=== PATIENT | female | born 1945 | race Caucasian/White ===

== ENCOUNTER → 2017-02-28 13:07 | Outpatient (CLI) | payer MEDICARE | END | disposition home or self-care (01) | LOC: D.MAMMO 10:15 | DX: Z12.31 Encounter for screening mammogram for malignant neoplasm of breast (principal) ==

== ENCOUNTER → 2018-01-05 14:23 | Outpatient (CLI) | payer MEDICARE ==
[~2018-01-05 14:23] MED LIST: ATIVAN1 MG; ATROVENT 0.03% NS; BENZONATATE200 MG PO; BROVANA15 MCG/2 M INH; CLARITIN 10 MG10 MG PO; FLORAJEN3 CAPS460 MG PO; FLUTICASONE PRO16 GM NASAL; IPRAT-ALBUT 0.5-3 ML UPD; OMNICEF300 MG PO; PREDNISONE10 MG PO; PULMICORT0.5 MG/21 UPD; SINGULAIR10 MG PO; SYMBICORT 16010.2 GM INH; VENTOLIN HFA18 GM INH; ZITHROMAX250 MG PO
[2018-01-06 09:13] LABS: IMMUNOGLOBULIN A 204 mg/dL (64-422)
[2018-01-07 22:05] LABS: IGG SUBCLASS 1 305 mg/dL (248-810); IGG SUBCLASS 2 108 mg/dL (130-555); IGG SUBCLASS 3 28 mg/dL (15-102); IGG SUBCLASS 4 84 mg/dL (2-96)
[2018-01-09 17:12] LABS: IMMUNOGLOBULIN E 26 IU/mL (0-100)
[2018-01-15 12:46] VITALS: BMI 25.1
== END | disposition home or self-care (01) ==
LOC: D.RT 14:23
PROVIDERS: Internal Medicine Pulmonary Disease
DX: J45.901 Unspecified asthma with (acute) exacerbation (principal); J42 Unspecified chronic bronchitis

== ENCOUNTER 2018-01-13 23:28 | Inpatient (IN) | payer MEDICARE ==
[~2018-01-13] VITALS: Ht 165.1 cm; Wt 68.5 kg
--- NOTE | ~2018-01-13 | MORECARE ---
CASE MANAGEMENT DISCHARGE SUMMARY PATIENT: AMINAH DORSEY UNIT: [id number] ADM DATE: 01/14/18 AGE: 72 : 41 SEX: F ROOM/BED: D.2232 AUTHOR: LESTER,DOC PHYSICIAN: REFERRING PHYSICIAN: RAE ROLLE MD DATE OF SERVICE: 01/16/18 Discharge Plan Patient Name: AMINAH DORSEY Facility: [facility]:[place] : 1945 Planned Disposition: Home Anticipated Discharge Date: Discharge Date: Expected LOS: Initial Reviewer: [email or web address] Initial Review Date: 01/16/2018 Generated: 01/16/18 3:17 pm Comments DCP- Discharge Planning Updated by [id number]: Hailee Talley on 01/16/18 1:[address] Patient Name: AMINAH DORSEY Admission Status: ER Accout number: [id number] Admission Date: 01-14-2018 : 1945 Admission Diagnosis: Attending: RAE ROLLE Current LOS: 2 Anticipated DC Date: Planned Disposition: Home Primary Insurance: [employer] CHOICE PPO MCR ADVANT Discharge Planning Comments: CM met with patient and her spouse to discuss discharge planning. States she lives with her and is independent with all ADL's and IADL's. States she has a nebulizer and her DME company is [facility]. States she does not need additional DME at this time. States she does not have any outside community resources assisting in the home. Declines need for home health services. No needs identified at this time. CM will continue to follow and assist with discharge planning/needs. Assurance Senior Manager Insurance: Hailee Talley DCPIA - Discharge Planning Initial Assessment Updated by [id number]: Hailee Talley on 01/16/18 2:12 pm * Is the patient Alert and Oriented? Yes * How many steps to enter\exit or inside your home? 2/0 * PCP Dr. Coelho * Pharmacy [facility] on [address] * Preadmission Environment Home with Family * ADLs Independent * Equipment Nebulizer * List name and contact numbers for known caregivers / representatives who currently or will assist patient after discharge: Higinio [facility] - [phone] * Verbal permission to speak to the caregivers and representatives has been obtained from the patient. Yes * Community resources currently utilized None * Please name any agencies selected above. Uses [facility] [facility] for DME * Additional services required to return to the preadmission environment? No * Can the patient safely return to the preadmission environment? Yes * Has this patient been hospitalized within the prior 30 days at any hospital? No Patient Name: AMINAH DORSEY Page [id number] at 1417 All edits/amendments must be made on the electronic document DICTATION DATE: 01/16/181415 GRADUATE RESEARCH ASSISTANT: FROYLAN 01/16/181415 RPT#: [id number] DC DATE: STATUS: ADM IN [facility] [address] [place] [address] END OF REPORT
--- NOTE | ~2018-01-13 | MORECARE ---
CASE MANAGEMENT DISCHARGE SUMMARY PATIENT: AMINAH DORSEY UNIT: [id number] ADM DATE: 01/14/18 AGE: 72 : 41 SEX: F ROOM/BED: D.2232 AUTHOR: ALEKSEY BATISTA PHYSICIAN: REFERRING PHYSICIAN: RAE ROLLE MD DATE OF SERVICE: 01/17/18 Discharge Plan Patient Name: AMINAH DORSEY Facility: [facility]:[place] : 1945 Planned Disposition: Home Anticipated Discharge Date: Discharge Date: Expected LOS: Initial Reviewer: [email or web address] Initial Review Date: 01/16/2018 Generated: 01/17/18 5:26 pm Comments DCP- Discharge Planning Updated by [email or web address]: Hailee Talley on 01/17/18 3:[address] Patient Name: AMINAH DORESY Encounter No: [id number] : 1945 Primary Insurance: [employer] CHOICE PPO MCR ADVANT Anticipated DC Date: Planned Disposition: Home External Planned Provider: : DCP follow-up note: Patient and family in agreement with discharge plan. Declines need for DME or home health services. No changes to plan. Case management will follow and assist as needed. Hailee Talley DCP- Discharge Planning Updated by [email or web address]: Hailee Talley on 01/16/18 1:[address] Patient Name: AMINAH DORSEY Admission Status: ER Accout number: [id number] Admission Date: 01-14-2018 : 1945 Admission Diagnosis: Attending: RAE ROLLE Current LOS: 2 Anticipated DC Date: Planned Disposition: Home Primary Insurance: [employer] CHOICE PPO MCR ADVANT Discharge Planning Comments: CM met with patient and her spouse to discuss discharge planning. States she lives with her and is independent with all ADL's and IADL's. States she has a nebulizer and her DME company is [employer] [facility]. States she does not need additional DME at this time. States she does not have any outside community resources assisting in the home. Declines need for home health services. No needs identified at this time. CM will continue to follow and assist with discharge planning/needs. Control Tower Operator: Hailee Talley DCPIA - Discharge Planning Initial Assessment Updated by [id number]: Hailee Talley on 01/16/18 2:12 pm * Is the patient Alert and Oriented? Yes * How many steps to enter\exit or inside your home? 2/0 * PCP Dr. Coelho * Pharmacy [facility] on [address] * Preadmission Environment Home with Family * ADLs Independent * Equipment Nebulizer * List name and contact numbers for known caregivers / representatives who currently or will assist patient after discharge: Higinio smith - [phone] * Verbal permission to speak to the caregivers and representatives has been obtained from the patient. Yes * Community resources currently utilized None * Please name any agencies selected above. Uses [employer] [facility] for DME * Additional services required to return to the preadmission environment? No * Can the patient safely return to the preadmission environment? Yes * Has this patient been hospitalized within the prior 30 days at any hospital? No Coverage Notice Reviewer: [id number] - Hailee Talley Notice Issued Date-Time: 01/17/2018 16:18 Notice Type: IM Discharge Notice Notice Delivered To: Patient Relationship to Patient: Self Program Services Planner Name: Delivery Method: HAND - Hand Delivered Mary Days: Prior Verbal Notification: Recipient Understood Notice: Yes Recipient Signature: Yes Med Rec Note Co-signed by Attending: Coverage Notice Comment: IMM explained, signed, copy given, original placed in MR Last DP export: 01/16/18 1:17 Patient Name: AMINAH DORSEY Page 19198 at 1626 All edits/amendments must be made on the electronic document DICTATION DATE: 01/17/181625 SCREW MACHINE HAND: FROYLAN 01/17/181625 RPT#: [id number] DC DATE: STATUS: ADM IN [facility] [address] [place] [address] END OF REPORT
--- NOTE | ~2018-01-13 | MORECARE ---
CASE MANAGEMENT DISCHARGE SUMMARY PATIENT: AMINAH DORSEY UNIT: [id number] ADM DATE: 01/14/18 AGE: 72 : 41 SEX: F ROOM/BED: D.2232 AUTHOR: ALEKSEY BATISTA PHYSICIAN: REFERRING PHYSICIAN: RAE ROLLE MD DATE OF SERVICE: 01/19/18 Discharge Plan Patient Name: AMINAH DORSEY Facility: [facility]:[place] : 1945 Planned Disposition: Home Anticipated Discharge Date: Discharge Date: 01/17/2018 Expected LOS: 0 Initial Reviewer: [id number] Initial Review Date: 01/16/2018 Generated: 01/19/18 6:07 pm Comments DCP- Discharge Planning Updated by [email or web address]: Hailee Talley on 01/17/18 3:[address] Patient Name: AMINAH DORSEY Encounter No: [id number] : 1945 Primary Insurance: [employer] CHOICE PPO MCR ADVANT Anticipated DC Date: Planned Disposition: Home External Planned Provider: : DCP follow-up note: Patient and family in agreement with discharge plan. Declines need for DME or home health services. No changes to plan. Case management will follow and assist as needed. Hailee Talley DCP- Discharge Planning Updated by [email or web address]: Hailee Talley on 01/16/18 1:[address] Patient Name: AMINAH DORSEY Admission Status: ER Accout number: [id number] Admission Date: 01-14-2018 : 1945 Admission Diagnosis: Attending: RAE ROLLE Current LOS: 2 Anticipated DC Date: Planned Disposition: Home Primary Insurance: [employer] CHOICE PPO MCR ADVANT Discharge Planning Comments: CM met with patient and her spouse to discuss discharge planning. States she lives with her and is independent with all ADL's and IADL's. States she has a nebulizer and her DME company is [employer]. States she does not need additional DME at this time. States she does not have any outside community resources assisting in the home. Declines need for home health services. No needs identified at this time. CM will continue to follow and assist with discharge planning/needs. Photocomposing Machine Operator: Hailee Talley DCPIA - Discharge Planning Initial Assessment Updated by [email or web address]: Hailee Talley on 01/16/18 2:12 pm * Is the patient Alert and Oriented? Yes * How many steps to enter\exit or inside your home? 2/0 * PCP Dr. Coelho * Pharmacy [facility] on [address] * Preadmission Environment Home with Family * ADLs Independent * Equipment Nebulizer * List name and contact numbers for known caregivers / representatives who currently or will assist patient after discharge: Higinio smith - [phone] * Verbal permission to speak to the caregivers and representatives has been obtained from the patient. Yes * Community resources currently utilized None * Please name any agencies selected above. Uses [facility] for DME * Additional services required to return to the preadmission environment? No * Can the patient safely return to the preadmission environment? Yes * Has this patient been hospitalized within the prior 30 days at any hospital? No Coverage Notice Reviewer: [id number] - Hailee Talley Notice Issued Date-Time: 01/17/2018 16:18 Notice Type: IM Discharge Notice Notice Delivered To: Patient Relationship to Patient: Self Heater Helper Name: Delivery Method: HAND - Hand Delivered Mary Days: Prior Verbal Notification: Recipient Understood Notice: Yes Recipient Signature: Yes Med Rec Note Co-signed by Attending: Coverage Notice Comment: IMM explained, signed, copy given, original placed in MR Last DP export: 01/17/18 3:26 Patient Name: AMINAH DORSEY Page [id number] at 1707 All edits/amendments must be made on the electronic document DICTATION DATE: 01/19/181706 CORRECTIONAL CLASSIFICATION COUNSELOR: FROYLAN 01/19/181706 RPT#: [id number] DC DATE:01/17/18 STATUS: DIS IN [facility] [address] [place] [address] END OF REPORT
[2018-01-13] MEDS ORDERED: SINGULAIR10 MG PO (23:37)
[2018-01-13] MEDS ORDERED: FLUTICASONE PRO16 GM NASAL (23:38)
[2018-01-13] MEDS ORDERED: ATIVAN1 MG (23:39)
[2018-01-13] MEDS ORDERED: VENTOLIN HFA18 GM INH (23:40)
[2018-01-14] VITALS (8 sets, daily range): BP systolic 148–165; BP diastolic 66–92; BMI 25.1
[2018-01-14 00:24] LABS: BASOPHILS 0.6 % (0-2); EOSINOPHILS 9.4 % (0-7); HEMATOCRIT 40.1 % (36.0-48.0); HEMOGLOBIN 14.1 g/dL (12-16); IMMATURE GRANULOCYTES 0.3 % (0-5); LYMPHOCYTES 12.7 % (15-50); MCH 31.1 pg (26.0-34.0); MCHC 35.2 g/dL (31.0-37.0); MCV 88.3 fL (80.0-100.0); MEAN PLATELET VOLUME 9.7 fL (7.4-10.4); MONOCYTES 5.6 % (2-11); NEUTROPHILS 71.4 % (40-80); PLATELET COUNT 202 10x3/uL (130-400); RBC 4.54 10x6/uL (4.00-5.40); RDW 12.8 % (11.5-14.5); WBC 9.4 10x3/uL (4.8-10.8)
[2018-01-14 00:37] LABS: ALBUMIN 3.6 g/dL (3.4-5.0); ALKALINE PHOSPHATASE 97 U/L (46-116); ALT (SGPT) 20 U/L (10-68); BILIRUBIN - TOTAL 0.29 mg/dL (0.2-1.3); CALC OSMOLALITY 268 mosm/kg (275-300); CARBON DIOXIDE 27.4 mmol/L (21.0-32.0); CHLORIDE - SERUM 99 mmol/L (98-107); CREATININE - SERUM 0.6 mg/dL (0.6-1.3); GLUCOSE 138 mg/dL (74-106); POTASSIUM - SERUM 3.6 mmol/L (3.5-5.1); SODIUM 134 mmol/L (136-145); UREA NITROGEN 10 mg/dL (7-18); eGFR NON AFRICAN AMERICAN > 90 mL/min (90-120)
[2018-01-14 02:03] LABS: APPEARANCE CLEAR (CLEAR); BILIRUBIN NEGATIVE (NEGATIVE); COLOR YELLOW (YELLOW); GLUCOSE NEGATIVE (NEGATIVE); KETONE NEGATIVE (NEGATIVE); NITRITE NEGATIVE (NEGATIVE); PROTEIN NEGATIVE (NEGATIVE); SPECIFIC GRAVITY 1.015 (1.005-1.020); UROBILINOGEN NORMAL (NORMAL)
[2018-01-14] MEDS ORDERED: CLARITIN 10 MG10 MG PO (03:05)
[2018-01-14] MEDS ORDERED: SYMBICORT 16010.2 GM INH (03:07)
[2018-01-15 06:20] LABS: BASOPHILS 0.1 % (0-2); EOSINOPHILS 0 % (0-7); HEMATOCRIT 37.5 % (36.0-48.0); IMMATURE GRANULOCYTES 0.5 % (0-5); LYMPHOCYTES 5.5 % (15-50); MCH 30.6 pg (26.0-34.0); MCHC 34.7 g/dL (31.0-37.0); MCV 88.2 fL (80.0-100.0); MONOCYTES 1.4 % (2-11); NEUTROPHILS 92.5 % (40-80); PLATELET COUNT 226 10x3/uL (130-400); RBC 4.25 10x6/uL (4.00-5.40); RDW 12.8 % (11.5-14.5); WBC 13.2 10x3/uL (4.8-10.8)
[2018-01-15 06:30] VITALS: BP 135/57
[2018-01-15 06:33] LABS: ANION GAP 11.9 mmol/L (8-16); CALCIUM 8.8 mg/dL (8.5-10.1); CARBON DIOXIDE 25.6 mmol/L (21.0-32.0); POTASSIUM - SERUM 3.5 mmol/L (3.5-5.1)
[2018-01-15 06:34] LABS: CREATININE - SERUM 0.8 mg/dL (0.6-1.3)
[2018-01-15 08:55] VITALS: BP 121/32
[2018-01-15 12:32] VITALS: BP 153/62
[2018-01-15 12:46] VITALS: Ht 165.1 cm; Wt 68.5 kg
[2018-01-15 16:31] VITALS: BP 137/54
[2018-01-15 20:00] VITALS: BP 137/73
[2018-01-16 06:00] VITALS: BP 153/78
[2018-01-16 06:38] LABS: BASOPHILS 0.1 % (0-2); EOSINOPHILS 0 % (0-7); HEMATOCRIT 40.5 % (36.0-48.0); HEMOGLOBIN 13.6 g/dL (12-16); IMMATURE GRANULOCYTES 0.2 % (0-5); LYMPHOCYTES 7.3 % (15-50); MCH 30.6 pg (26.0-34.0); MCHC 33.6 g/dL (31.0-37.0); MEAN PLATELET VOLUME 10.3 fL (7.4-10.4); MONOCYTES 3.9 % (2-11); NEUTROPHILS 88.5 % (40-80); PLATELET COUNT 208 10x3/uL (130-400); RBC 4.44 10x6/uL (4.00-5.40); RDW 13.2 % (11.5-14.5); WBC 12.7 10x3/uL (4.8-10.8)
[2018-01-16 06:44] LABS: MCV 91.2 fL (80.0-100.0)
[2018-01-16 07:02] LABS: CALC OSMOLALITY 275 mosm/kg (275-300); CALCIUM 9.1 mg/dL (8.5-10.1); CARBON DIOXIDE 25.3 mmol/L (21.0-32.0); CHLORIDE - SERUM 101 mmol/L (98-107); CREATININE - SERUM 0.7 mg/dL (0.6-1.3); GLUCOSE 144 mg/dL (74-106); SODIUM 136 mmol/L (136-145); UREA NITROGEN 16 mg/dL (7-18); eGFR NON AFRICAN AMERICAN 87 mL/min (90-120)
[2018-01-16 08:45] VITALS: BP 143/62
[2018-01-16 12:45] VITALS: BP 139/66
[2018-01-16 17:50] VITALS: BP 138/62
[2018-01-16 20:00] VITALS: BP 148/76
[2018-01-17 05:36] LABS: BASOPHILS 0 % (0-2); EOSINOPHILS 0.3 % (0-7); HEMATOCRIT 37.6 % (36.0-48.0); HEMOGLOBIN 12.9 g/dL (12-16); IMMATURE GRANULOCYTES 0.5 % (0-5); LYMPHOCYTES 23.8 % (15-50); MCH 30.6 pg (26.0-34.0); MCHC 34.3 g/dL (31.0-37.0); MCV 89.3 fL (80.0-100.0); MEAN PLATELET VOLUME 9.7 fL (7.4-10.4); NEUTROPHILS 67.4 % (40-80); PLATELET COUNT 213 10x3/uL (130-400); RBC 4.21 10x6/uL (4.00-5.40); RDW 13.2 % (11.5-14.5); WBC 9.9 10x3/uL (4.8-10.8)
[2018-01-17 05:44] LABS: CALC OSMOLALITY 278 mosm/kg (275-300); CALCIUM 8.7 mg/dL (8.5-10.1); CARBON DIOXIDE 29.5 mmol/L (21.0-32.0); CHLORIDE - SERUM 102 mmol/L (98-107); CREATININE - SERUM 0.6 mg/dL (0.6-1.3); GLUCOSE 98 mg/dL (74-106); POTASSIUM - SERUM 3.7 mmol/L (3.5-5.1); SODIUM 139 mmol/L (136-145); UREA NITROGEN 16 mg/dL (7-18); eGFR NON AFRICAN AMERICAN > 90 mL/min (90-120)
[2018-01-17 06:00] VITALS: BP 169/83
[2018-01-17 09:28] VITALS: BP 118/76
[2018-01-17 12:49] VITALS: BP 126/69
[2018-01-17] MEDS ORDERED: ZITHROMAX250 MG PO (15:43)
[2018-01-17] MEDS ORDERED: BROVANA15 MCG/2 M INH (15:45)
[2018-01-17] MEDS ORDERED: PULMICORT0.5 MG/21 UPD (15:45)
[2018-01-17] MEDS ORDERED: IPRAT-ALBUT 0.5-3 ML UPD (15:45)
[2018-01-17] MEDS ORDERED: BENZONATATE200 MG PO (15:45)
[2018-01-17] MEDS ORDERED: PREDNISONE10 MG PO (15:46)
[2018-01-17] MEDS ORDERED: FLORAJEN3 CAPS460 MG PO (15:46)
[2018-01-17] MEDS ORDERED: ATROVENT 0.03% NS (15:47)
[2018-01-17] MEDS ORDERED: OMNICEF300 MG PO (15:47)
== END 2018-01-17 17:00 | disposition home or self-care (01) | DRG 202 ==
LOC: D.ER 23:28 → D.MS 01-14 02:19
PROVIDERS: Emergency Medicine; Internal Medicine Nephrology
DX: J20.9 Acute bronchitis, unspecified (principal); J45.902 Unspecified asthma with status asthmaticus; F41.9 Anxiety disorder, unspecified; D72.1 Eosinophilia; I10 Essential (primary) hypertension; K21.9 Gastro-esophageal reflux disease without esophagitis; E04.1 Nontoxic single thyroid nodule; M81.0 Age-related osteoporosis without current pathological fracture; J42 Unspecified chronic bronchitis; E78.00 Pure hypercholesterolemia, unspecified; L71.9 Rosacea, unspecified

== ENCOUNTER → 2018-05-07 17:51 | Outpatient (CLI) | payer MEDICARE ==
[2018-01-15 12:46] VITALS: BMI 25.1
[2018-05-07 18:44] LABS: BASOPHILS 0.9 % (0-2); EOSINOPHILS 9.4 % (0-7); HEMATOCRIT 37.6 % (36.0-48.0); HEMOGLOBIN 12.5 g/dL (12-16); IMMATURE GRANULOCYTES 0.2 % (0-5); LYMPHOCYTES 17.7 % (15-50); MCH 30.1 pg (26.0-34.0); MCHC 33.2 g/dL (31.0-37.0); MCV 90.6 fL (80.0-100.0); MEAN PLATELET VOLUME 10.6 fL (7.4-10.4); MONOCYTES 5.8 % (2-11); PLATELET COUNT 204 10x3/uL (130-400); RBC 4.15 10x6/uL (4.00-5.40); RDW 13.4 % (11.5-14.5); WBC 9.3 10x3/uL (4.8-10.8)
== END | disposition home or self-care (01) ==
LOC: D.LABREF 17:51
PROVIDERS: Internal Medicine Pulmonary Disease
DX: J82 Pulmonary eosinophilia, not elsewhere classified (principal)

== ENCOUNTER → 2018-06-18 13:41 | Outpatient (CLI) | payer MEDICARE ==
[2018-01-15 12:46] VITALS: BMI 25.1
== END | disposition home or self-care (01) ==
LOC: D.RAD 09:00 → D.RT 13:41 → D.RAD 14:45
PROVIDERS: ATTEND Internal Medicine Pulmonary Disease
DX: J82 Pulmonary eosinophilia, not elsewhere classified (principal)

== ENCOUNTER 2019-01-16 05:15 | Day surgery (SDC) | payer MEDICARE ==
[2019-01-11 15:03] LABS: ANION GAP 7.2 mmol/L (8-16); CALCIUM 9.2 mg/dL (8.5-10.1); CARBON DIOXIDE 32.9 mmol/L (21.0-32.0); CREATININE - SERUM 0.8 mg/dL (0.6-1.3); POTASSIUM - SERUM 4.1 mmol/L (3.5-5.1)
[2019-01-11 15:17] LABS: BASOPHILS 0 % (0-2); EOSINOPHILS 0 % (0-7); HEMATOCRIT 37.8 % (36.0-48.0); HEMOGLOBIN 12.6 g/dL (12-16); IMMATURE GRANULOCYTES 0.2 % (0-5); LYMPHOCYTES 28.4 % (15-50); MCH 30.7 pg (26.0-34.0); MCHC 33.3 g/dL (31.0-37.0); MEAN PLATELET VOLUME 10.5 fL (7.4-10.4); MONOCYTES 6.7 % (2-11); NEUTROPHILS 64.7 % (40-80); PLATELET COUNT 179 10x3/uL (130-400); RBC 4.11 10x6/uL (4.00-5.40); RDW 12.6 % (11.5-14.5); WBC 6.6 10x3/uL (4.8-10.8)
[~2019-01-16] VITALS: Ht 165.1 cm; Wt 68.5 kg
[~2019-01-16 05:15] MED LIST changes: +CELEXA20 MG PO; +FASENRA SC; +NORVASC5 MG PO; +PROTONIX40 MG PO
[2019-01-16 06:16] VITALS: BP 137/56; Ht 165.1 cm; Wt 68.5 kg
--- NOTE | 2019-01-16 06:35 | NUR ---
DR EASON NOTIFIED AND REVIEWED PATIENT'S BEHAVIOR AND ASSESSMENT. PT IS A LOW RISK PER DR EASON. DR EASON STATED TO GIVE RESOURCES AT TIME OF DISCHARGE. RESOURCES REVIEWED WITH PATIENT AND SHE VERBALIZES UNDERSTANDING.
--- NOTE | 2019-01-16 07:40 | NUR ---
PT HAD POSITIVE SUICIDE RISK SCREENING. CALLED [facility] ARCHITECT TO INFORM. [facility] NURSE EVALUATED PT BEFORE SURGERY.
== END 2019-01-16 09:50 | disposition home or self-care (01) ==
LOC: D.OPS 05:15 → D.PAN 08:10 → D.OPS 08:15 → D.PAN 08:15 → D.OPS 09:50
PROVIDERS: ATTEND Orthopaedic Surgery
DX: M65.312 Trigger thumb, left thumb (principal)

== ENCOUNTER → 2019-08-09 12:47 | Outpatient (CLI) | payer MEDICARE ==
[2019-01-16 06:16] VITALS: BMI 25.1
[2019-08-09 14:24] LABS: BASOPHILS 0.9 % (0-2); EOSINOPHILS 7.2 % (0-7); HEMATOCRIT 39.9 % (36.0-48.0); HEMOGLOBIN 13.3 g/dL (12-16); IMMATURE GRANULOCYTES 0.3 % (0-5); LYMPHOCYTES 23.8 % (15-50); MCH 30.8 pg (26.0-34.0); MCHC 33.3 g/dL (31.0-37.0); MCV 92.4 fL (80.0-100.0); MEAN PLATELET VOLUME 9.7 fL (7.4-10.4); MONOCYTES 7.2 % (2-11); NEUTROPHILS 60.6 % (40-80); PLATELET COUNT 187 10x3/uL (130-400); RBC 4.32 10x6/uL (4.00-5.40); RDW 12.7 % (11.5-14.5); WBC 7.5 10x3/uL (4.8-10.8)
== END | disposition home or self-care (01) ==
LOC: D.LAB 07-09 13:00 → D.RT 07-09 14:00 → D.LAB 12:47
PROVIDERS: ATTEND Internal Medicine Pulmonary Disease
DX: J82 Pulmonary eosinophilia, not elsewhere classified (principal)

== ENCOUNTER → 2019-12-16 17:42 | Outpatient (CLI) | payer MEDICARE ==
[2019-01-16 06:16] VITALS: BMI 25.1
[2019-12-16 18:31] LABS: BASOPHILS 0.8 % (0-2); EOSINOPHILS 7.5 % (0-7); HEMATOCRIT 37.6 % (36.0-48.0); HEMOGLOBIN 12.8 g/dL (12-16); IMMATURE GRANULOCYTES 0.2 % (0-5); LYMPHOCYTES 21.8 % (15-50); MCH 30.9 pg (26.0-34.0); MCV 90.8 fL (80.0-100.0); MEAN PLATELET VOLUME 10.5 fL (7.4-10.4); MONOCYTES 6.1 % (2-11); NEUTROPHILS 63.6 % (40-80); PLATELET COUNT 204 10x3/uL (130-400); RBC 4.14 10x6/uL (4.00-5.40); RDW 12.6 % (11.5-14.5); WBC 9.2 10x3/uL (4.8-10.8)
== END | disposition home or self-care (01) ==
LOC: D.LABREF 17:42
PROVIDERS: ATTEND Internal Medicine Pulmonary Disease
DX: J45.909 Unspecified asthma, uncomplicated (principal)